=== PATIENT | male | born 1950 | race African-American/Black ===

== ENCOUNTER 2016-05-31 09:00 | Day surgery (SDC) | payer MEDICARE, OTHER ==
[2016-05-24 13:02] LABS: ABSOLUTE EOSINOPHILS # (AUTO) 0.2 10^3/uL (0.0-0.6); ABSOLUTE LYMPHOCYTES (AUTO) 2.4 10^3/uL (0.5-4.7); ABSOLUTE MONOCYTES (AUTO) 0.5 10^3/uL (0.1-1.4); BASOPHILS % (AUTO) 0.6 % (0-2); EOSINOPHILS % (AUTO) 2.8 % (0-6); HEMOGLOBIN 13.8 g/dL (13.5-17.0); HGB HCT DIFFERENCE 0.4; LYMPHOCYTES % (AUTO) 38.6 % (13-45); MEAN CORPUSCULAR HEMOGLOBIN 27.1 pg (27.0-33.4); MEAN CORPUSCULAR HGB CONC 33.6 g/dL (32.0-36.0); MEAN CORPUSCULAR VOLUME 81 fl (80-97); MONOCYTES % (AUTO) 8.6 % (3-13); RED BLOOD COUNT 5.07 10^6/uL (4.35-5.55); RED CELL DISTRIBUTION WIDTH 15.4 % (11.5-14.0); SEGMENTED NEUTROPHILS % (AUTO) 49.4 % (42-78); WHITE BLOOD COUNT 6.2 10^3/uL (4.0-10.5)
[2016-05-24 13:06] LABS: APPEARANCE,URINE CLEAR; BILIRUBIN,URINE NEGATIVE (NEGATIVE); GLUCOSE, URINE NEGATIVE (NEGATIVE); KETONES,URINE NEGATIVE (NEGATIVE); LEUKOCYTE ESTERASE,URINE NEGATIVE (NEGATIVE); NITRITE,URINE NEGATIVE (NEGATIVE); PROTEIN,URINE NEGATIVE (NEGATIVE); URINE SPECIFIC GRAVITY 1.014; UROBILINOGEN,URINE NEGATIVE mg/dL (<2.0)
[2016-05-24 13:23] LABS: ANION GAP 12 (5-19); BLOOD UREA NITROGEN 17 mg/dL (7-20); CALCIUM 9.7 mg/dL (8.4-10.2); CARBON DIOXIDE 31 mmol/L (22-30); CHLORIDE 97 mmol/L (98-107); CREATININE RESULT 1.29 mg/dL (0.52-1.25); GLUCOSE 94 mg/dL (75-110); POTASSIUM 5.1 mmol/L (3.6-5.0)
--- NOTE | 2016-05-24 20:08 | EKG REPORT ---
SEVERITY:- ABNORMAL ECG - SINUS RHYTHM VENTRICULAR PREMATURE COMPLEX LEFT ANTERIOR FASCICULAR BLOCK NONSPECIFIC T ABNORMALITIES, DIFFUSE LEADS : Confirmed by: Nereyda Dumas MD 24-May-2016 20:07:18
[~2016-05-31 09:00] MED LIST: CEFAZOLIN 2 GM/D5W RTU 2 GM/50 ML RTUPB IV PRN; LACTATED RINGERS 1000 ML IV PRN; LIDOCAINE 0.5% INJ-PF (5 MG/ML) 50 ML SDV SUBCUT PRN
[2016-05-31] MEDS ORDERED: BUPIVACAINE HCL 0.5%-EPI 1:200000 INJ/PF 30 ML VIAL ONE (09:18)
[2016-05-31] MEDS ORDERED: FENTANYL CITRATE INJ/PF 250 MCG/5 ML AMPULE ONE (10:43)
[2016-05-31] MEDS ORDERED: HYDROMORPHONE HCL INJ/PF 2 MG/ML AMPULE ONE (10:43)
[2016-05-31] MEDS ORDERED: ONDANSETRON HCL INJ/PF 4 MG/2 ML SDV ONE (10:44)
[2016-05-31] MEDS ORDERED: ACETAMINOPHEN 100 ML IV ONE (10:44)
[2016-05-31] MEDS ORDERED: DEXAMETHASONE SOD PHOSPHATE INJ 4 MG/1 ML VIAL ONE (10:44)
[2016-05-31] MEDS ORDERED: PROPOFOL INJ 200 MG/20 ML VIAL IV ONE (10:44)
[2016-05-31] MEDS ORDERED: MIDAZOLAM 2 MG/2 ML INJ ONE (10:44)
[2016-05-31] MEDS ORDERED: ONDANSETRON HCL INJ/PF 4 MG/2 ML SDV IV PRN ×2 (11:26→12:06)
[2016-05-31] MEDS ORDERED: PROMETHAZINE HCL INJ 25 MG/1 ML VIAL IV PRN ×2 (11:26)
[2016-05-31] MEDS ORDERED: MEPERIDINE HCL/PF INJ 25 MG/1 ML DISP.SYRIN IV PRN (11:26)
[2016-05-31] MEDS ORDERED: DIPHENHYDRAMINE HCL 50 MG/ML VIAL IV PRN (11:26)
[2016-05-31] MEDS ORDERED: FENTANYL CITRATE INJ/PF 100 MCG/2 ML AMPUL IV PRN ×3 (11:26)
--- NOTE | 2016-05-31 11:43 | Operative Report ---
Operative Report DATE OF SURGERY: 05/31/16 PREOPERATIVE DIAGNOSIS: Right rotator cuff tear OPERATION: Acromioplasty and right rotator cuff repair SURGEON: ELYSSA CORNEJO ANESTHESIA: GA TISSUE REMOVED OR ALTERED: Bone and soft tissue to pathology ESTIMATED BLOOD LOSS: 50 PROCEDURE: With the patient in a beachchair position on the [place] table the right upper extremity hindquarter prepped and draped in a sterile fashion. A longitudinal incision was made over the junction the anterior and middle thirds of the acromion extending distally. Sharp dissection is carried incision down to the deltoid. The deltoid is split in the direction of its fibers. It's cleared off the lateral surface of the acromion and acromioplasty is performed with a oscillating saw. The rotator cuff tear is identified. The degenerative edges are trimmed using a 15 blade. The landing zone is prepared using a running sure. A 5.5 anchors sunk into the landing zone and the 4 strands of suture used to affect a rotator cuff repair. At this point the wound is irrigated. The deltoid repaired using interrupted Vicryl. Subsequent soft tissue reapproximated using Vicryl and skin reapproximated using ted. A sterile compressive dressing and a shoulder mobilizer applied and the patient's returned to recovery room in satisfactory condition.
[2016-05-31] MEDS ORDERED: OXYCODONE HCL IR 5 MG TABLET PO PRN (12:06)
[2016-05-31] MEDS ORDERED: LIDOCAINE 1%/EPINEPHRINE INJ 20 ML VIAL ONE (12:19)
[2016-05-31] MEDS ORDERED: FENTANYL CITRATE INJ/PF 100 MCG/2 ML AMPUL ONE (12:43)
[2016-05-31] MEDS ORDERED: GLYCOPYRROLATE INJ 0.4 MG/2 ML VIAL ONE (14:46)
[2016-05-31] MEDS ORDERED: ROCURONIUM BROMIDE INJ 50 MG/5 ML VIAL IV ONE (14:46)
[2016-05-31] MEDS ORDERED: NEOSTIGMINE METHYLSULFATE 10 MG/10 ML VIAL ONE (14:46)
[2016-05-31] MEDS ORDERED: SUCCINYLCHOLINE CHLORIDE INJ 200 MG/10 ML VIAL ONE (14:46)
[2016-05-31 15:52] VITALS: BP 128/76
== END 2016-05-31 15:45 | disposition home or self-care (01) ==
LOC: OROUT 09:00
PROVIDERS: ATTEND Orthopaedic Surgery
PROC: 0LM10ZZ Reattachment of Right Shoulder Tendon, Open Approach (ICD-10-PCS; principal; 2016-05-31 11:15)
DX: M75.121 Complete rotator cuff tear or rupture of right shoulder, not specified as traumatic (principal); I10 Essential (primary) hypertension; K21.9 Gastro-esophageal reflux disease without esophagitis; E78.5 Hyperlipidemia, unspecified; E11.9 Type 2 diabetes mellitus without complications; Z79.899 Other long term (current) drug therapy; Z88.2 Allergy status to sulfonamides; Z88.5 Allergy status to narcotic agent; Z79.82 Long term (current) use of aspirin; Z79.1 Long term (current) use of non-steroidal anti-inflammatories (NSAID)
CPT/HCPCS: 93005; 36415 ×2; 82962; 84132; 85025; 80048; 81001; 83036; 88304 ×2; 88311; 71020; 93010; 23420; L3650; C1713; J2250; J3490 ×3; J1100; J3010 ×2; J1170; J0330; J2405; J2704; J0690; J0131; 1630

== ENCOUNTER → 2016-10-25 | Outpatient (CLI) | payer OTHER ==
[~2016-10-25] MED LIST changes: +AMINOPHYLLINE INJ/PF 250 MG/10 ML SDV IV ONE; -CEFAZOLIN 2 GM/D5W RTU 2 GM/50 ML RTUPB IV PRN; -LACTATED RINGERS 1000 ML IV PRN; -LIDOCAINE 0.5% INJ-PF (5 MG/ML) 50 ML SDV SUBCUT PRN; +REGADENOSON INJ 0.4 MG/5 ML DISP.SYRIN IV ONE
--- NOTE | 2016-10-26 12:52 | DRAGON STRESS TEST REPORT ---
INTRAVENOUS LEXISCAN CARDIOLITE STRESS TEST USING SINGLE PHOTON EMMISION COMPUTERIZED TOMOGRAPHIC. DATE OF PROCEDURE: October 25, 2016 INDICATION : Chest pain CARDIAC RISK FACTORS: Dyslipidemia, history of coronary stent RESTING EKG: Sinus rhythm with nonspecific T-wave inversion STRESS EKG: No significant changes noted with LexiScan bolus REASON FOR TERMINATION: Protocol. PROCEDURE REPORT: Baseline heart rate 78 beats per minute with blood pressure of 125/83. Patient had no significant complaints. Heart rate at 2 minutes post bolus 90 with a blood pressure of 130/70. 3 minutes post bolus heart rate 81 with blood pressure of 120/68. No significant EKG changes were noted. Patient had no significant complaints during the procedure or postprocedure. Patient injected with Aminophyllin 75 mg at 3 minutes or later after Lexiscan bolus. CONCLUSIONS: Normal EKG and hemodynamic response to IV LexiScan. NUCLEAR DATA: At rest the patient was given 12.61 millicuries of technetium 99 sestamibi injected intravenously. As per protocol rest gated SPECT images were obtained. Subsequently the patient was given intravenous LexiScan at a dose of 0.4 mg in 5 mL intravenously, followed by flush with normal saline. Subsequently the stress dose of 42.5 millicuries of technetium 99 sestamibi was injected intravenously. As per protocol stress gated images were obtained. NUCLEAR INTERPRETATION: Both raw and processed data were used for interpretation. Visual, qualitative, computer-generated quantitative data was used. There was good myocardial uptake of technetium compound. Motion artifact and soft tissue attenuations were noted. Increased visceral uptake was noted. No definitive areas of transient perfusion defect noted except for a small area of borderline decreased uptake in the distal lateral wall felt to be artifactual as no corresponding wall motion abnormalities noted but cannot rule out an area of mild ischemia. No definitive areas of fixed perfusion defect or scars noted. EKG gated imaging showed LV EF at 47 %, rest and stress gated EF similar visually. T. I D. ratio was 1.00. Lung heart ratio noted to be within normal limits 0.32. No significant extracardiac and abnormal radiotracer activities were noted. RV free wall uptake was noted to be WNL. IMPRESSION: Also refer to comments under nuclear interpretation. Also test results needs to be interpreted in the context of pretest probability. 1. No definitive areas of transient perfusion defect noted except for a small area of borderline decreased uptake in the distal lateral wall felt to be artifactual as no corresponding wall motion abnormalities noted but cannot rule out an area of mild ischemia. Clinical correlation requested. 2. There is no definitive scintigraphic evidence of myocardial infarction/scar. 3. EKG gated imaging shows left ventricular ejection fraction of approximately 47 %. 4. Clinical correlation requested as occasionally single vessel disease or balanced ischemia could be missed. In approximately 10% of the cases Lexiscan may not cause adequate vasodilatory stress. RECOMMENDATIONS: Aggressive risk factor modification, medical therapy. Clinical correlation with echocardiogram derived ejection fraction. Inability to exercise by itself can lead to increased cardiovascular event risks. Consider cardiology consultation and or follow-up if clinically indicated. I AM AVAILABLE FOR CARDIOLOGY CONSULTATION AND FOLLOWUP IF REQUESTED BY PMD Melissa Valentine M.D., [facility] Director hospital librarian, Board certified in cardiovascular diseases, Nuclear cardiology, Echocardiography Cardiac CT and cardiac MRI Ph. [phone] [facility]
== END ==
LOC: RAD 06:59
PROVIDERS: ATTEND Nurse Practitioner Adult Health
DX: R07.9 Chest pain, unspecified (principal); E78.5 Hyperlipidemia, unspecified
CPT/HCPCS: 93017; 78452; A9500; J2785; J0280; Q9969

== ENCOUNTER 2017-01-04 20:14 | Emergency (ER) | payer OTHER, MEDICARE ==
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
[2017-01-04] MEDS ORDERED: NAPROXEN 250 MG TABLET PO ONE (21:37)
[2017-01-04 22:23] VITALS: BP 140/74
== END 2017-01-04 21:57 | disposition home or self-care (01) ==
LOC: ER 20:14
DX: M25.512 Pain in left shoulder (principal); R20.0 Anesthesia of skin; V87.7XXA Person injured in collision between other specified motor vehicles (traffic), initial encounter
CPT/HCPCS: 72070; 99283

== ENCOUNTER 2017-07-01 16:29 | Emergency (ER) | payer OTHER, MEDICARE ==
--- NOTE | 2017-07-01 17:16 | ER Document Report ---
ED Medical Screen (RME) - General Chief Complaint: Abdominal Pain Stated Complaint: DIZZY/HEAD AND STOMACH PAIN Time Seen by Provider: 07/01/17 17:05 Notes: RAPID MEDICAL EVALUATION DISCLOSURE I have seen this patient as part of a Rapid Medical Evaluation and, if applicable, placed any initially appropriate orders. The patient will be seen and fully evaluated, including a full history and physical exam, by a provider ( in Main ED or Fast Track) when a room becomes available. 66-year-old male here with complaints of left upper quadrant abdominal pain nausea (no vomiting) and as of this morning diarrhea. Pain is not worse with anything in particular. He is also had some intermittent headaches but does not currently have a headache. He has been taking Tylenol for the symptoms. He is lightheaded mostly when he stands up. He has been drinking plenty of fluids, he reports. He does have a history of electrolyte imbalance for which he was hospitalized many years ago. EXAM Minimal left upper quadrant TTP TRAVEL OUTSIDE OF THE [place] IN LAST 30 DAYS: No - Related Data Allergies/Adverse Reactions: ibuprofen [From Motrin] Allergy (Severe, Verified 01/04/17 20:23) TONGUE Edema morphine [Morphine] Allergy (Severe, Verified 01/04/17 20:23) anger,fight latex Allergy (Unknown, Verified 01/04/17 20:23) Sulfa (Sulfonamide Antibiotics) Allergy (Unknown, Verified 01/04/17 20:23) ? reaction Past Medical History - Social History Chew tobacco use (# tins/day): No Frequency of alcohol use: Occasional Drug Abuse: None - Past Medical History Cardiac Medical History: Reports: Hx Coronary Artery Disease - 2 stents, Hx Hypercholesterolemia Denies: Hx Heart Attack, Hx Hypertension Pulmonary Medical History: Denies: Hx Asthma, Hx Bronchitis, Hx COPD, Hx Pneumonia Neurological Medical History: Denies: Hx Cerebrovascular Accident, Hx Seizures Endocrine Medical History: Reports: Hx Diabetes Mellitus Type 2 Renal/ Medical History: Denies: Hx Peritoneal Dialysis GI Medical History: Reports: Hx Gastroesophageal Reflux Disease Musculoskeltal Medical History: Reports Hx Arthritis - hands,knees,Rt neck,Lt shoulder Past Surgical History: Reports: Hx Cardiac Surgery - stents, Hx Orthopedic Surgery - rotator cuff. Denies: Hx Pacemaker - Immunizations Hx Diphtheria, Pertussis, Tetanus Vaccination: Yes Physical Exam - Vital signs Vitals: Temp Pulse Resp BP Pulse Ox 98.7 F 45 L 18 145/63 H 96 07/01/17 16:33 07/01/17 16:33 07/01/17 16:33 07/01/17 16:33 07/01/17 16:33 Course - Vital Signs Vital signs: Temp Pulse Resp BP Pulse Ox 98.7 F 45 L 18 145/63 H 96 07/01/17 16:33 07/01/17 16:33 07/01/17 16:33 07/01/17 16:33 07/01/17 16:33
[2017-07-01] MEDS ORDERED: ONDANSETRON 4 MG TAB.RAPDIS PO ONE (17:32)
[2017-07-01 18:18] LABS: ABSOLUTE EOSINOPHILS # (AUTO) 0.2 10^3/uL (0.0-0.6); ABSOLUTE LYMPHOCYTES (AUTO) 2.8 10^3/uL (0.5-4.7); ABSOLUTE MONOCYTES (AUTO) 0.5 10^3/uL (0.1-1.4); ABSOLUTE NEUT (AUTO) 2.7 10^3/uL (1.7-8.2); BASOPHILS % (AUTO) 0.8 % (0-2); EOSINOPHILS % (AUTO) 2.6 % (0-6); HEMATOCRIT 42.5 % (37.9-51.0); LYMPHOCYTES % (AUTO) 44.7 % (13-45); MEAN CORPUSCULAR VOLUME 82 fl (80-97); MONOCYTES % (AUTO) 8.5 % (3-13); PLATELET COUNT 199 10^3/uL (150-450); RED CELL DISTRIBUTION WIDTH 15.5 % (11.5-14.0); SEGMENTED NEUTROPHILS % (AUTO) 43.4 % (42-78); TOTAL CELLS COUNTED % (AUTO) 100 %; WHITE BLOOD COUNT 6.2 10^3/uL (4.0-10.5)
[2017-07-01 18:32] LABS: ALANINE AMINOTRANSFERASE 30 U/L (21-72); ALBUMIN 4.3 g/dL (3.5-5.0); ALKALINE PHOSPHATASE 69 U/L (38-126); ANION GAP 12 (5-19); ASPARTATE AMINO TRANSFERASE 22 U/L (17-59); BILIRUBIN,DIRECT 0.2 mg/dL (0.0-0.4); BILIRUBIN,TOTAL 0.2 mg/dL (0.2-1.3); BLOOD UREA NITROGEN 18 mg/dL (7-20); CALCIUM 9.6 mg/dL (8.4-10.2); CARBON DIOXIDE 28 mmol/L (22-30); CHLORIDE 102 mmol/L (98-107); GLUCOSE 130 mg/dL (75-110); POTASSIUM 4.5 mmol/L (3.6-5.0); SODIUM 141.9 mmol/L (137-145); TOTAL PROTEIN 7.1 g/dL (6.3-8.2)
[2017-07-01 18:39] LABS: LIPASE 2619.7 U/L (23-300)
--- NOTE | 2017-07-01 18:43 | RADIOLOGY REPORT (SQ) ---
EXAM DESCRIPTION: ACUTE ABDOMEN SERIES COMPLETED DATE/TIME: 07/01/2017 6:29 pm REASON FOR STUDY: lightheadedness upper abd pain COMPARISON: None. NUMBER OF VIEWS: Three views. TECHNIQUE: Frontal chest, supine abdomen and upright/decubitus abdomen radiographic images acquired. LIMITATIONS: None. FINDINGS: CHEST: Lungs clear of infiltrates. FREE AIR: None. No abnormal gas collections. BOWEL GAS PATTERN: Somewhat dilated bowel loops. CALCIFICATIONS: No suspicious calcifications. HARDWARE: Surgical clips. SOFT TISSUES: No gross mass or suggestion of organomegaly. BONES: No acute fracture. No worrisome bone lesions. OTHER: No other significant finding. IMPRESSION: SOMEWHAT DILATED BOWEL LOOPS. PROBABLY ILEUS BUT CANNOT EXCLUDE DEVELOPING BOWEL OBSTRU CTION. TECHNICAL DOCUMENTATION: JOB ID: [id number] [employer]- All Rights Reserved Reading location - IP/workstation name: [email or web address]
--- NOTE | 2017-07-01 19:19 | ER Document Report ---
ED General - General Chief Complaint: Abdominal Pain Stated Complaint: DIZZY/HEAD AND STOMACH PAIN Time Seen by Provider: 07/01/17 17:05 Notes: Patient is a 66-year-old male with a past medical history of diabetes with insulin dependence hypertension and hyperlipidemia who presents with 2 days of epigastric and left upper quadrant abdominal pain with associated lightheadedness and intermittent nausea. He describes the pain as a stabbing, aching pain to his upper abdomen. Worsened by eating. Nothing improves the pain. He denies a history of similar symptoms in the past. He denies any associated fever or constitutional symptoms. He does that although he has been nauseated he has not vomited and has been able to tolerate oral intake. He has continued to have regular bowel movements. He has a surgical history of a remote cholecystectomy. He denies alcohol use. No recent medication changes. He has not seen his primary doctor regarding today's concerns. TRAVEL OUTSIDE OF THE [place] IN LAST 30 DAYS: No - Related Data Allergies/Adverse Reactions: ibuprofen [From Motrin] Allergy (Severe, Verified 01/04/17 20:23) TONGUE Edema morphine [Morphine] Allergy (Severe, Verified 01/04/17 20:23) anger,fight latex Allergy (Unknown, Verified 01/04/17 20:23) Sulfa (Sulfonamide Antibiotics) Allergy (Unknown, Verified 01/04/17 20:23) ? reaction Past Medical History - General Information source: Patient - Social History Smoking Status: Never Smoker Chew tobacco use (# tins/day): No Frequency of alcohol use: Occasional Drug Abuse: None Lives with: Spouse/Significant other Family History: Reviewed & Not Pertinent Patient has suicidal ideation: No Patient has homicidal ideation: No - Past Medical History Cardiac Medical History: Reports: Hx Coronary Artery Disease - 2 stents, Hx Hypercholesterolemia Denies: Hx Heart Attack, Hx Hypertension Pulmonary Medical History: Denies: Hx Asthma, Hx Bronchitis, Hx COPD, Hx Pneumonia Neurological Medical History: Denies: Hx Cerebrovascular Accident, Hx Seizures Endocrine Medical History: Reports: Hx Diabetes Mellitus Type 2 Renal/ Medical History: Denies: Hx Peritoneal Dialysis GI Medical History: Reports: Hx Gastroesophageal Reflux Disease Musculoskeltal Medical History: Reports Hx Arthritis - hands,knees,Rt neck,Lt shoulder Past Surgical History: Reports: Hx Cardiac Surgery - stents, Hx Orthopedic Surgery - rotator cuff. Denies: Hx Pacemaker - Immunizations Hx Diphtheria, Pertussis, Tetanus Vaccination: Yes Review of Systems - Review of Systems Notes: Constitutional: Negative for fever. HENT: Negative for sore throat. Eyes: Negative for visual changes. Cardiovascular: Negative for chest pain. Respiratory: Negative for shortness of breath. Gastrointestinal: Positive for epigastric abdominal pain and nausea Genitourinary: Negative for dysuria. Musculoskeletal: Negative for back pain. Skin: Negative for rash. Neurological: Negative for headaches, weakness or numbness. 10 point ROS negative except as marked above and in HPI. Physical Exam - Vital signs Vitals: Temp Pulse Resp BP Pulse Ox 98.7 F 45 L 18 145/63 H 96 07/01/17 16:33 07/01/17 16:33 07/01/17 16:33 07/01/17 16:33 07/01/17 16:33 Interpretation: Bradycardic - Patient reports this is baseline Notes: PHYSICAL EXAMINATION: GENERAL: Well-appearing, well-nourished and in no acute distress. HEAD: Atraumatic, normocephalic. EYES: Pupils equal round and reactive to light, extraocular movements intact, sclera anicteric, conjunctiva are normal. ENT: nares patent, oropharynx clear without exudates. Moderately dry mucous membranes. NECK: Normal range of motion, supple without lymphadenopathy LUNGS: Breath sounds clear to auscultation bilaterally and equal. No wheezes rales or rhonchi. HEART: Regular rate and rhythm without murmurs ABDOMEN: Soft, mild epigastric and left upper quadrant abdominal tenderness without rebound or guarding no other localized areas of tenderness, normoactive bowel sounds. No guarding, no rebound. No masses appreciated. EXTREMITIES: Normal range of motion, no pitting or edema. No cyanosis. NEUROLOGICAL: No focal neurological deficits. Moves all extremities spontaneously and on command. PSYCH: Normal mood, normal affect. SKIN: Warm, Dry, normal turgor, no rashes or lesions noted. Course - Re-evaluation Re-evalutation: 07/01/17 19:12 Patient presents with clinical history and exam and labs to suggest acute pancreatitis. Lipase is elevated today. No clear trigger for today's episode as patient is remote status post cholecystectomy and denies alcohol use. No new medications or recent medication changes. At time of arrival, patient's vitals are within normal limits, they are well-appearing and in no acute distress. The patient has tolerated oral intake without difficulty and has not had any vomiting with today's presentation. Pain was able to be controlled here in the emergency department with oral medications. Kersey score is 0. Patient is an appropriate candidate for outpatient management of this acute episode of pancreatitis using oral pain medications, antiemetics, and recommendations for a clear liquid diet until pain has resolved. Of note, an abdominal series that was obtained in triage shows a possible ileus. However patient clinically does not demonstrate signs consistent with this as he has not had any vomiting and denies any global abdominal discomfort. At this time will discharge with return precautions and follow-up recommendations. Verbal discharge instructions given a the bedside and opportunity for questions given. Medication warnings reviewed. Patient is in agreement with this plan and has verbalized understanding of return precautions and the need for primary care follow-up in the next 24-72 hours. - Vital Signs Vital signs: Temp Pulse Resp BP Pulse Ox 97.7 F 72 18 123/59 L 97 07/01/17 19:39 07/01/17 19:39 07/01/17 19:39 07/01/17 19:39 07/01/17 19:39 - Laboratory Result Diagrams: 07/01/17 17:55 07/01/17 17:55 Laboratory results interpreted by me: 07/01/17 07/01/17 17:55 17:55 RDW 15.5 H Creatinine 1.31 H Est GFR (Non-Af Amer) 54 L Glucose 130 H Lipase 2619.7 H - Diagnostic Test Radiology reviewed: Image reviewed, Reports reviewed Radiology results interpreted by me: 07/01/17 19:13 Two-view abdomen: Possible ileus - EKG Interpretation by Me Additional EKG results interpreted by me: 07/02/17 04:31 Sinus rhythm. Frequent PVCs. Average rate of 85. No ST elevations or depressions. QTC is 424. Discharge - Discharge Clinical Impression: Upper abdominal pain, Lightheadedness Acute pancreatitis Qualifiers: Pancreatitis type: idiopathic Acute pancreatitis complication: no infection or necrosis Qualified Code(s): K85.00 - Idiopathic acute pancreatitis without necrosis or infection Condition: Good Disposition: HOME, SELF-CARE Additional Instructions: You were seen today for pancreatitis. Your case today appears mild and it is safe for you to go home today with medications for pain and nausea. Please drink plenty of fluids over the next several days and try to avoid food ingestion until your pain is resolved. Please return to the emergency department immediately if you develop persistent vomiting that prohibits you from taking your medications or keeping fluids down, you develop a fever of greater than 101F, you have worsening pain, you become confused, you become short of breath, or have any other symptoms that are worrisome to you. Please follow-up with your primary care doctor in the next 24-48 hours. For your pain: Take ibuprofen 600 mg and acetaminophen 1000 mg every 6 hours together as needed for pain. If this does not control your pain you may take 50mg of tramadol every 6 hours as needed. Please be very careful about using the tramadol and only use this for severe pain. Prescriptions: Ondansetron [Zofran Odt 4 mg Tablet] 1 - 2 tab PO Q4H PRN #15 tab.rapdis PRN Reason: For Nausea/Vomiting Tramadol HCl 50 mg PO Q6H PRN #10 tablet PRN Reason: Severe Pain Referrals: PATY SANCHEZ DO [Primary Care Provider] - 07/03/17
[2017-07-01 19:40] VITALS: BP 123/59
--- NOTE | 2017-07-01 23:27 | EKG REPORT ---
SEVERITY:- ABNORMAL ECG - SINUS TACHYCARDIA VENTRICULAR BIGEMINY LEFT ANTERIOR FASCICULAR BLOCK CONSIDER ANTERIOR INFARCT BORDERLINE T WAVE ABNORMALITIES : Confirmed by: Vishnu Estevez MD 01-Jul-2017 23:26:32
== END 2017-07-01 19:39 | disposition home or self-care (01) ==
LOC: ER 16:29
DX: K85.00 Idiopathic acute pancreatitis without necrosis or infection (principal); R10.12 Left upper quadrant pain; R10.13 Epigastric pain; R42 Dizziness and giddiness; I25.10 Atherosclerotic heart disease of native coronary artery without angina pectoris; E78.00 Pure hypercholesterolemia, unspecified; E11.9 Type 2 diabetes mellitus without complications; Z88.6 Allergy status to analgesic agent; Z88.2 Allergy status to sulfonamides; Z91.040 Latex allergy status; Z79.4 Long term (current) use of insulin; Z90.49 Acquired absence of other specified parts of digestive tract
CPT/HCPCS: 93005; 99284; 36415; 83690; 85025; 80053; 84484; 74022; 93010; S0119

== ENCOUNTER → 2017-08-03 | Outpatient (CLI) | payer OTHER, MEDICARE ==
--- NOTE | 2017-08-03 16:36 | RADIOLOGY REPORT (SQ) ---
EXAM DESCRIPTION: RIBS LEFT W/PA CHEST COMPLETED DATE/TIME: 08/03/2017 4:02 pm REASON FOR STUDY: RIB PAIN ON LEFT SIDE R07.81 PLEURODYNIA COMPARISON: None. TECHNIQUE: Frontal view of the chest and additional views of the left ribs acquired. NUMBER OF VIEWS: Five view. LIMITATIONS: None. FINDINGS: FRONTAL CXR: No pneumothorax. No pleural effusion. No atelectasis or infiltrates. RIBS: No displaced rib fractures. No lytic or blastic bony lesions. OTHER: No other significant finding. IMPRESSION: NO PNEUMOTHORAX. NO DISPLACED RIB FRACTURES. COMMENT: SITE OF TRAUMA/COMPLAINT MARKED/STAMP COMPLETED: YES. TECHNICAL DOCUMENTATION: JOB ID: [id number] [email or web address]- All Rights Reserved Reading location - IP/workstation name: [email or web address]
== END ==
LOC: RAD 15:36
PROVIDERS: ATTEND Family Medicine
DX: R07.81 Pleurodynia (principal)

== ENCOUNTER → 2017-08-23 | Outpatient (CLI) | payer MEDICARE, OTHER ==
--- NOTE | 2017-08-24 11:07 | RADIOLOGY REPORT (SQ) ---
EXAM DESCRIPTION: MRI CHEST COMBO COMPLETED DATE/TIME: 08/23/2017 7:28 pm REASON FOR STUDY: R07.89 OTHER CHEST PAIN;MASS CHEST WALL R07.89 OTHER CHEST PAIN COMPARISON: Abdominal films 07/01/2017 Left ribs and PA chest films 08/03/2017 TECHNIQUE: PROCEDURE: T1 pre and post gadolinium, T2 fat sat weight sequences with attention to the left lateral chest wall in the area of palpable abnormality. CONTRAST TYPE AND DOSE: 15 mL Prohance. RENAL FUNCTION: Estimated GFR 59 LIMITATIONS: None. FINDINGS: Patient noticed a palpable abnormality along the left lateral ribs/lateral chest wall at a bout the level of the 6th 7th and 8th lateral ribs. Area of palpable abnormality was marked on the s kin with vitamin-E markers. Multi planer MR including fat-sat T2, T1 precontrast, fat-sat T1 postcon trast images were obtained. No bony abnormalities. No radiographically occult rib fracture is identified. Visualized scapula, v isualized thoracic spine in the field of view normal. No soft tissue mass is identified. No lipoma. No abnormal soft tissue enhancement. Deep to the markers, normalserratus anterior muscle and latissimus dorsi muscle are present. Limited view of the axilla in the field of view is normal. IMPRESSION: NO EVIDENCE OF MASS OR ADENOPATHY. TECHNICAL DOCUMENTATION: JOB ID: [id number] [employer]- All Rights Reserved Reading location - IP/workstation name: [email or web address]
== END ==
LOC: RAD 20:16
PROVIDERS: ATTEND Family Medicine
DX: R07.89 Other chest pain (principal)
CPT/HCPCS: 82565; 71552; A9576

== ENCOUNTER 2019-02-08 20:27 | Emergency (ER) | payer OTHER, MEDICARE ==
--- NOTE | 2019-02-08 21:22 | ER Document Report ---
ED Medical Screen (RME) - General Chief Complaint: Dizziness Stated Complaint: DIZZINES,NAUSEA,VOMITING Time Seen by Provider: 02/08/19 21:17 Primary Care Provider: PATY SANCHEZ DO [Primary Care Provider] - Follow up as needed Notes: Patient is a 68-year-old male who presents emergency department with feeling like he has staggered movements. He also states that he sometimes sees circles in his vision. His symptoms started 3 days ago. Exam: Alert and oriented. I have greeted and performed a rapid initial assessment of this patient. A comprehensive ED assessment and evaluation of the patient, analysis of test results and completion of medical decision making process will be conducted by an additional ED providers. TRAVEL OUTSIDE OF THE [place] IN LAST 30 DAYS: No - Related Data Allergies/Adverse Reactions: ibuprofen [From Motrin] Allergy (Severe, Verified 01/04/17 20:23) TONGUE Edema morphine [Morphine] Allergy (Severe, Verified 01/04/17 20:23) anger,fight latex Allergy (Unknown, Verified 01/04/17 20:23) Sulfa (Sulfonamide Antibiotics) Allergy (Unknown, Verified 01/04/17 20:23) ? reaction Past Medical History - Past Medical History Cardiac Medical History: Reports: Hx Coronary Artery Disease - 2 stents, Hx Hypercholesterolemia Denies: Hx Heart Attack, Hx Hypertension Pulmonary Medical History: Denies: Hx Asthma, Hx Bronchitis, Hx COPD, Hx Pneumonia Neurological Medical History: Denies: Hx Cerebrovascular Accident, Hx Seizures Endocrine Medical History: Reports: Hx Diabetes Mellitus Type 2 Renal/ Medical History: Denies: Hx Peritoneal Dialysis GI Medical History: Reports: Hx Gastroesophageal Reflux Disease Musculoskeltal Medical History: Reports Hx Arthritis - hands,knees,Rt neck,Lt shoulder Past Surgical History: Reports: Hx Cardiac Surgery - stents, Hx Orthopedic Surgery - rotator cuff. Denies: Hx Pacemaker - Immunizations Hx Diphtheria, Pertussis, Tetanus Vaccination: Yes Physical Exam - Vital signs Vitals: Temp Pulse Resp BP Pulse Ox 97.7 F 67 17 140/79 H 100 02/08/19 21:18 02/08/19 21:18 02/08/19 21:18 02/08/19 21:18 02/08/19 21:18 Course - Vital Signs Vital signs: Temp Pulse Resp BP Pulse Ox 97.7 F 67 17 140/79 H 100 02/08/19 21:18 02/08/19 21:18 02/08/19 21:18 02/08/19 21:18 02/08/19 21:18 Doctor's Discharge - Discharge Referrals: PATY SANCHEZ DO [Primary Care Provider] - Follow up as needed
[2019-02-08 21:57] LABS: ABSOLUTE EOSINOPHILS # (AUTO) 0.1 10^3/uL (0.0-0.6); ABSOLUTE LYMPHOCYTES (AUTO) 1.9 10^3/uL (0.5-4.7); ABSOLUTE MONOCYTES (AUTO) 0.4 10^3/uL (0.1-1.4); ABSOLUTE NEUT (AUTO) 2.8 10^3/uL (1.7-8.2); BASOPHILS % (AUTO) 0.6 % (0-2); EOSINOPHILS % (AUTO) 2.6 % (0-6); HEMATOCRIT 39.9 % (37.9-51.0); HEMOGLOBIN 13.6 g/dL (13.5-17.0); LYMPHOCYTES % (AUTO) 36.8 % (13-45); MEAN CORPUSCULAR HEMOGLOBIN 28.1 pg (27.0-33.4); MEAN CORPUSCULAR HGB CONC 34.1 g/dL (32.0-36.0); MEAN CORPUSCULAR VOLUME 82 fl (80-97); MONOCYTES % (AUTO) 7.6 % (3-13); PLATELET COUNT 207 10^3/uL (150-450); RED BLOOD COUNT 4.85 10^6/uL (4.35-5.55); RED CELL DISTRIBUTION WIDTH 14.7 % (11.5-14.0); SEGMENTED NEUTROPHILS % (AUTO) 52.4 % (42-78); TOTAL CELLS COUNTED % (AUTO) 100 %; WHITE BLOOD COUNT 5.3 10^3/uL (4.0-10.5)
[2019-02-08 22:14] LABS: ALBUMIN 4.4 g/dL (3.5-5.0); ALKALINE PHOSPHATASE 82 U/L (38-126); ANION GAP 7 (5-19); ASPARTATE AMINO TRANSFERASE 25 U/L (17-59); BILIRUBIN,DIRECT 0.2 mg/dL (0.0-0.4); BILIRUBIN,TOTAL 0.5 mg/dL (0.2-1.3); BLOOD UREA NITROGEN 16 mg/dL (7-20); CALCIUM 9.4 mg/dL (8.4-10.2); CARBON DIOXIDE 34 mmol/L (22-30); CHLORIDE 99 mmol/L (98-107); GLUCOSE 113 mg/dL (75-110); POTASSIUM 3.8 mmol/L (3.6-5.0); TOTAL PROTEIN 7.4 g/dL (6.3-8.2)
--- NOTE | 2019-02-08 22:19 | RADIOLOGY REPORT (SQ) ---
EXAM DESCRIPTION: XR CHEST 1 VIEW COMPLETED DATE/TME: 02/08/2019 21:20 CLINICAL HISTORY: 68 years, Male, altered COMPARISON: Prior study from 08/03/2018 NUMBER OF VIEWS: One TECHNIQUE: Single frontal view of the chest was obtained LIMITATIONS: None. FINDINGS: Cardiac and mediastinal contours are stable. Lungs are clear. No pleural effusion or pneumothorax. IMPRESSION: No acute disease. copyright 2010 [employer]- All Rights Reserved
--- NOTE | 2019-02-08 23:18 | RADIOLOGY REPORT (SQ) ---
EXAM DESCRIPTION: CT HEAD WITHOUT IV CONTRAST COMPLETED DATE/TME: 02/08/2019 21:21 CLINICAL HISTORY: 68 years, Male, loss of balance COMPARISON: None. TECHNIQUE: Noncontrast CT of the head was performed. Coronal and sagittal reformations were created. Images stored on PACS. All CT scanners at this facility use dose modulation, iterative reconstruction, and/or weight based dosing when appropriate to reduce radiation dose to as low as reasonably achievable (ALARA). [facility]: Dose Right [facility]: CareDose [facility]: Dose Right [facility]: Teradose 4D [facility]: [employer] LIMITATIONS: None. FINDINGS: Evaluation of the brain parenchyma reveals mild periventricular and patchy subcortical white matter low-attenuation. No acute intracranial process, mass effect, or extra-axial fluid is seen. The ventricles and sulcal spaces are mildly enlarged. Globes and orbits show no acute abnormality. Paranasal sinuses and mastoid air cells are clear. 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 Additional smooth defect about the left arch of C1 is also likely chronic. No depressed skull fractures. IMPRESSION: No acute intracranial abnormality. Mild chronic microvascular ischemic change with generalized atrophy. TECHNICAL DOCUMENTATION: Quality ID # [id number]: Final reports with documentation of one or more dose reduction techniques (e.g., Automated exposure control, adjustment of the mA and/or kV according to patient size, use of iterative reconstruction technique) copyright 2011 [employer]- All Rights Reserved
--- NOTE | 2019-02-08 23:57 | ER Document Report ---
ED Dizziness/Weakness - General Chief Complaint: Dizziness Stated Complaint: DIZZINES,NAUSEA,VOMITING Time Seen by Provider: 02/08/19 21:17 Primary Care Provider: PATY SANCHEZ DO [Primary Care Provider] - Follow up as needed Mode of Arrival: Ambulatory Information source: Patient, Relative TRAVEL OUTSIDE OF THE [place] IN LAST 30 DAYS: No - HPI Notes: Patient reports dizziness. He states it is worse with standing and better with lying down. He states it occurs randomly and intermittently. He states that when he first stands up it is the most severe and then lessens as he continues to stand. He has had some mild nausea but no vomiting. No diarrhea. No fevers or rashes. He states that he has chronic sinus congestion and allergies but there are no new symptoms with his allergies. No cough. He has had a mild headache but currently does not have one. When he had a headache it was diffuse and aching in nature. Nothing made it better or worse. No known radiation of the pain. No recent trauma. He does have a past medical history of 2 cardiac stents but none within approximately the last 10 years. No history of strokes. He states he occasionally has some circles in his vision. No numbness or tingling or weakness of any extremity. No problems speaking or swallowing. No problems with confusion. The symptoms have been going on for a little over 3 days. - Related Data Allergies/Adverse Reactions: ibuprofen [From Motrin] Allergy (Severe, Verified 01/04/17 20:23) TONGUE Edema morphine [Morphine] Allergy (Severe, Verified 01/04/17 20:23) anger,fight latex Allergy (Unknown, Verified 01/04/17 20:23) Sulfa (Sulfonamide Antibiotics) Allergy (Unknown, Verified 01/04/17 20:23) ? reaction Past Medical History - General Information source: Patient, Relative - Social History Smoking Status: Never Smoker Frequency of alcohol use: None Drug Abuse: None Lives with: Spouse/Significant other Family History: Reviewed & Not Pertinent Patient has suicidal ideation: No Patient has homicidal ideation: No - Past Medical History Cardiac Medical History: Reports: Hx Coronary Artery Disease - 2 stents, Hx Hypercholesterolemia Denies: Hx Heart Attack, Hx Hypertension Pulmonary Medical History: Denies: Hx Asthma, Hx Bronchitis, Hx COPD, Hx Pneumonia Neurological Medical History: Denies: Hx Cerebrovascular Accident, Hx Seizures Endocrine Medical History: Reports: Hx Diabetes Mellitus Type 2 Renal/ Medical History: Denies: Hx Peritoneal Dialysis GI Medical History: Reports: Hx Gastroesophageal Reflux Disease Musculoskeletal Medical History: Reports Hx Arthritis - hands,knees,Rt neck,Lt shoulder Past Surgical History: Reports: Hx Cardiac Surgery - stents, Hx Orthopedic Surgery - rotator cuff. Denies: Hx Pacemaker - Immunizations Hx Diphtheria, Pertussis, Tetanus Vaccination: Yes Review of Systems - Review of Systems Constitutional: denies: Chills, Fever EENT: Nose congestion, Sinus pressure Cardiovascular: denies: Chest pain, Palpitations Respiratory: denies: Cough, Hemoptysis, Short of breath Skin: denies: Rash Neurological/Psychological: denies: Confusion, Dementia -: Yes All other systems reviewed and negative Physical Exam - Vital signs Vitals: Temp Pulse Resp BP Pulse Ox 97.7 F 67 17 140/79 H 100 02/08/19 21:18 02/08/19 21:18 02/08/19 21:18 02/08/19 21:18 02/08/19 21:18 Interpretation: Normal - General General appearance: Appears well, Alert - HEENT Head: Normocephalic, Atraumatic Eyes: Normal Pupils: PERRL - Respiratory Respiratory status: No respiratory distress Chest status: Nontender Breath sounds: Normal Chest palpation: Normal - Cardiovascular Rhythm: Regular Heart sounds: Normal auscultation Murmur: No - Abdominal Inspection: Normal Distension: No distension Bowel sounds: Normal Tenderness: Nontender Organomegaly: No organomegaly - Back Back: Normal, Nontender - Extremities General upper extremity: Normal inspection, Nontender, Normal color, Normal ROM, Normal temperature General lower extremity: Normal inspection, Nontender, Normal color, Normal ROM, Normal temperature, Normal weight bearing. No: Lisa's sign - Neurological Neuro grossly intact: Yes Cognition: Normal Orientation: AAOx4 [place] Coma Scale Eye Opening: Spontaneous Tessa Coma Scale Verbal: Oriented [place] Coma Scale Motor: Obeys Commands [place] Coma Scale Total: 15 Speech: Normal Cranial nerves: Normal Cerebellar coordination: Normal. 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 No: Involuntary movements, Pronator drift Sensory: Normal - Psychological Associated symptoms: Normal affect, Normal mood - Skin Skin Temperature: Warm Skin Moisture: Dry Skin Color: Normal Course - Re-evaluation Re-evalutation: 02/08/19 23:55 Patient presents with dizziness. There is no obvious cause of the dizziness on emergency room evaluation. Patient has no abnormalities that are significant on the monitor concerning vital signs. He has a normal neurological exam. He has a negative Romberg and a normal gait. His ear exam is unremarkable. His head CT shows no acute changes. His laboratories are also unremarkable. I informed the patient that if symptoms persist I recommend that he gets an MRI. I think patient is very low risk for any type of intracranial lesion that would be causing the dizziness therefore I recommended to patient that he get the MRI as an outpatient if the symptoms persist. I am going to give the patient a trial of meclizine to see if this helps with the dizziness. - Vital Signs Vital signs: Temp Pulse Resp BP Pulse Ox 97.7 F 67 17 140/79 H 100 02/08/19 21:18 02/08/19 21:18 02/08/19 21:18 02/08/19 21:18 02/08/19 21:18 - Laboratory Result Diagrams: 02/08/19 21:45 02/08/19 21:45 Laboratory results interpreted by me: 02/08/19 02/08/19 21:45 21:45 RDW 14.7 H Carbon Dioxide 34 H Creatinine 1.33 H Est GFR (MDRD) Non-Af 53 L Glucose 113 H - Diagnostic Test Radiology reviewed: Image reviewed, Reports reviewed Discharge - Discharge Clinical Impression: Dizziness Condition: Stable Disposition: HOME, SELF-CARE Instructions: Meclizine ([facility]), Dizziness ([facility]) Additional Instructions: If symptoms persist for more than 72 hours please discuss an MRI with your physician or return to the emergency department for a recheck. Prescriptions: Meclizine HCl [Antivert 25 mg Tablet] 25 mg PO Q8 PRN 5 Days #12 tablet PRN Reason: Referrals: PATY SANCHEZ DO [Primary Care Provider] - Follow up as needed
[2019-02-08] MEDS ORDERED: MECLIZINE HCL 25 MG TABLET PO ONE (23:59)
[2019-02-09 00:25] VITALS: BP 148/89
== END 2019-02-09 00:25 | disposition home or self-care (01) ==
LOC: ER 20:27
DX: R42 Dizziness and giddiness (principal); R11.2 Nausea with vomiting, unspecified; R51 Headache; R09.81 Nasal congestion; I25.10 Atherosclerotic heart disease of native coronary artery without angina pectoris; E11.9 Type 2 diabetes mellitus without complications
CPT/HCPCS: 36415; 70450; 71045; 80053; 85025; 99284

== ENCOUNTER 2019-04-21 16:05 | Emergency (ER) | payer OTHER, MEDICARE ==
[2019-04-21 16:18] VITALS: BP 147/70
[2019-04-21] MEDS ORDERED: LIDOCAINE 1% INJ-PF (10 MG/ML) 30 ML SDV INJ ONE (16:33)
--- NOTE | 2019-04-21 16:52 | RADIOLOGY REPORT (SQ) ---
EXAM DESCRIPTION: FINGER LEFT COMPLETED DATE/TIME: 04/21/2019 4:41 pm REASON FOR STUDY: left thumb injury COMPARISON: None. NUMBER OF VIEWS: Three views. TECHNIQUE: AP, lateral, and oblique images acquired of the left thumb. LIMITATIONS: None. FINDINGS: MINERALIZATION: Normal. BONES: No acute fracture or dislocation. No worrisome bone lesions. SOFT TISSUES: No soft tissue swelling. No foreign body. OTHER: Degenerative changes in the metacarpal phalangeal joint of the thumb and interphalangeal joint of the thumb with prominent osteophytes and joint space narrowing. IMPRESSION: Osteoarthritic changes. No acute fracture. TECHNICAL DOCUMENTATION: JOB ID: [id number] 2010 [employer]- All Rights Reserved Reading location - IP/workstation name: [email or web address]
--- NOTE | 2019-04-21 17:42 | ER Document Report ---
HPI - HPI Time Seen by Provider: 04/21/19 16:26 Pain Level: 4 Notes: 5-year-old male patient presenting to the emergency department with left thumb laceration. Patient reports this occurred just prior to arrival as he was using a brand-new razor knife to work on his golf clubs. - CONSTITUTIONAL Constitutional: DENIES: Fever, Chills - REPRODUCTIVE Reproductive: DENIES: : Past Medical History - General Information source: Patient - Social History Smoking Status: Never Smoker Frequency of alcohol use: None Drug Abuse: None Family History: Reviewed & Not Pertinent Patient has suicidal ideation: No Patient has homicidal ideation: No - Past Medical History Cardiac Medical History: Reports: Hx Coronary Artery Disease - 2 stents, Hx Hypercholesterolemia Denies: Hx Heart Attack, Hx Hypertension Pulmonary Medical History: Denies: Hx Asthma, Hx Bronchitis, Hx COPD, Hx Pneumonia Neurological Medical History: Denies: Hx Cerebrovascular Accident, Hx Seizures Endocrine Medical History: Reports: Hx Diabetes Mellitus Type 2 Renal/ Medical History: Denies: Hx Peritoneal Dialysis GI Medical History: Reports: Hx Gastroesophageal Reflux Disease Musculoskeletal Medical History: Reports Hx Arthritis - hands,knees,Rt neck,Lt shoulder Past Surgical History: Reports: Hx Cardiac Surgery - stents, Hx Orthopedic Surgery - rotator cuff. Denies: Hx Pacemaker - Immunizations Hx Diphtheria, Pertussis, Tetanus Vaccination: Yes Vertical Provider Document - CONSTITUTIONAL Notes: PHYSICAL EXAMINATION: GENERAL: Well-appearing, well-nourished and in no acute distress. HEAD: Atraumatic, normocephalic. EYES: Pupils equal round extraocular movements intact, conjunctiva are normal. ENT: Nares patent NECK: Normal range of motion LUNGS: No respiratory distress Musculoskeletal: Normal range of motion NEUROLOGICAL: Normal speech, normal gait. PSYCH: Normal mood, normal affect. SKIN: 2 cm laceration noted to left thumb, does not involve the nailbed. - INFECTION CONTROL TRAVEL OUTSIDE OF THE [place] IN LAST 30 DAYS: No Course - Re-evaluation Re-evalutation: Laceration repaired under sterile technique, patient tolerated well. - Vital Signs Vital signs: Temp Pulse Resp BP Pulse Ox 98.3 F 53 L 16 147/70 H 96 04/21/19 16:16 04/21/19 16:16 04/21/19 16:16 04/21/19 16:16 04/21/19 16:16 Procedures - Laceration/Wound Repair Left thumb Wound length (cm): 2 Wound's Depth, Shape: Superficial Laceration pre-procedure: Sterile PPE donned Anesthetic type: 1% Lidocaine Wound Debrided: Minimal Wound Repaired With: Sutures Suture Size/Type: 5:0 Number of Sutures: 5 Post-procedure wound care: Sterile dressing applied Complications: No Discharge - Discharge Clinical Impression: Laceration Condition: Stable Disposition: HOME, SELF-CARE Additional Instructions: Laceration Care Your laceration has been sutured to keep the skin edges aligned during healing. The time of suture removal depends on the nature and location of your cut. Please follow the care instructions the doctor has outlined for you and return for further care, according to the schedule you've been given. Keep the wound and dressing clean. Unless you were told otherwise, you may shower daily, blotting the wound dry with a clean, unused towel. At other times, If the dressing gets wet or blood soaked, remove it and blot the wound dry, then reapply a new dressing. Unless you were instructed otherwise, dressings should be changed at least daily. If any signs of infection occur (swelling, redness, increasing tenderness, red streaks, tender lumps in the armpit or groin above the laceration, or fever), see the doctor immediately. Please return to the emergency department or your primary care provider in 8-10 days for suture removal. Please return earlier if you develop any signs of infection such as increased redness, swelling, foul-smelling drainage or fever. Prescriptions: Cephalexin [Cephalexin 500 MG Tablet] 1 tab PO BID #10 tablet Referrals: PATY SANCHEZ DO [Primary Care Provider] - Follow up as needed
[2019-04-21] MEDS ORDERED: DIPH/PERTUSS(ACELL)/TETANUS VAC/PF 0.5 ML SYR (>=10YO) IM ONE (18:03)
== END 2019-04-21 18:23 | disposition home or self-care (01) ==
LOC: ER 16:05
PROC: 0HQGXZZ Repair Left Hand Skin, External Approach (ICD-10-PCS; principal; 2019-04-21)
DX: S61.012A Laceration without foreign body of left thumb without damage to nail, initial encounter (principal); W26.0XXA Contact with knife, initial encounter; I25.10 Atherosclerotic heart disease of native coronary artery without angina pectoris; E11.9 Type 2 diabetes mellitus without complications
CPT/HCPCS: 90471; 90715; 99283